=== PATIENT | male | born 2000 | race Caucasian/White ===

== ENCOUNTER → 2020-06-05 15:50 | Outpatient (CLI) | payer OTHER, SELFPAY ==
[2020-06-06 14:31] LABS: COVID19 Sendout Positive (Not Detect)
== END ==
PROVIDERS: Visit Provider Student in an Organized Health Care Education/Training Program
DX: U07.1 COVID-19 (principal)
CPT/HCPCS: 87635

== ENCOUNTER → 2020-10-13 11:51 | Outpatient (CLI) | payer OTHER, SELFPAY | PROVIDERS: Referring Provider Internal Medicine; Visit Provider Internal Medicine | DX: Z23 Encounter for immunization (principal) | CPT/HCPCS: 90471; 90686 ==

== ENCOUNTER → 2021-10-30 14:11 | Outpatient (CLI) | payer OTHER, BC, SELFPAY | PROVIDERS: PCP Family Medicine; Referring Provider Internal Medicine; Visit Provider Internal Medicine | DX: Z23 Encounter for immunization (principal) | CPT/HCPCS: 90471; 90686 ==

== ENCOUNTER → 2021-11-15 08:59 | Outpatient (CLI) | payer OTHER, BC, SELFPAY ==
[2021-11-15 09:24] LABS: COVID19 -Nasal RAPID Negative (Negative)
== END ==
PROVIDERS: PCP Family Medicine; Referring Provider Physician Assistant; Visit Provider Physician Assistant
DX: Z20.822 Contact with and (suspected) exposure to COVID-19 (principal); R05.9 Cough, unspecified
CPT/HCPCS: 87635

== ENCOUNTER → 2022-03-27 09:44 | Outpatient (CLI) | payer OTHER, BC, SELFPAY ==
[2022-03-27 11:33] LABS: Influenza A - CEPHEID Flu A NEGATIVE (NEGATIVE); Influenza B - CEPHEID Flu B NEGATIVE (NEGATIVE)
[2022-03-27 11:34] LABS: COVID-19 CEPHEID PCR (VTM/NP) Negative (Negative)
== END ==
PROVIDERS: PCP Family Medicine; Visit Provider Nurse Practitioner Family
DX: J02.9 Acute pharyngitis, unspecified (principal); R50.9 Fever, unspecified
CPT/HCPCS: 0240U; 87070; 87077; 87147

== ENCOUNTER → 2022-06-28 11:20 | Outpatient (CLI) | payer OTHER, BC, SELFPAY ==
[2022-06-28 11:53] LABS: COVID19 -Nasal RAPID Negative (Negative)
== END ==
PROVIDERS: PCP Family Medicine; Visit Provider Nurse Practitioner Family
DX: Z20.822 Contact with and (suspected) exposure to COVID-19 (principal); J31.2 Chronic pharyngitis
CPT/HCPCS: 87070; 87077; 87147; 87635

== ENCOUNTER → 2022-11-07 13:39 | Outpatient (CLI) | payer OTHER, BC, SELFPAY | PROVIDERS: PCP Family Medicine; Referring Provider Internal Medicine; Visit Provider Internal Medicine | DX: Z23 Encounter for immunization (principal) | CPT/HCPCS: 90471; 90686 ==

== ENCOUNTER → 2023-01-10 12:28 | Outpatient (CLI) | payer OTHER, BC, SELFPAY ==
--- NOTE | 2023-01-10 12:30 | DI.RAD.S_ITS ---
PROCEDURE: XR LUMBAR SPINE 2-3V INDICATIONS: Low back injury TECHNIQUE: 3 views of the lumbar spine were acquired. COMPARISON: None. FINDINGS: Bones: 5 [id number] vertebrae are present. There is normal bony alignment. No vertebral body compression fractures. No suspicious bony lesions. Soft tissues: Overlying bowel gas pattern is normal. No suspicious soft tissue calcifications. IMPRESSION: No evidence acute bony abnormality of the lumbar spine. If clinical suspicion and/or symptoms persist, lumbar spine MRI may be helpful for further assessment. Dictated by: Santos Chen M.D. on 01/10/2023 at 12:50 Approved by: Santos Chen M.D. on 01/10/2023 at 12:51
== END ==
PROVIDERS: PCP Family Medicine; Referring Provider Registered Nurse; Visit Provider Registered Nurse
DX: M54.50 Low back pain, unspecified (principal)
CPT/HCPCS: 72100

== ENCOUNTER 2023-08-11 12:58 | Emergency (ER) | payer OTHER, BC, SELFPAY ==
[2023-08-11 13:02] VITALS: BP 143/81; PULSE 55; RESP 16; TEMP 36.7; O2SAT 99; BMI 35.9
--- NOTE | 2023-08-11 13:23 | DI.RAD.S_ITS ---
PROCEDURE: XR SHOULDER LT MIN 2V INDICATIONS: Possible torn pectoralis TECHNIQUE: 3 views of the shoulder were acquired. COMPARISON: None. FINDINGS: Bones: No fractures or dislocations. No suspicious bony lesions. Visualized ribs appear intact. Soft tissues: No suspicious soft tissue calcifications. IMPRESSION: No acute osseous abnormality. Consider MRI if clinically indicated. Dictated by: Andry Mack M.D. on 08/11/2023 at 14:33 Approved by: Andry Mack M.D. on 08/11/2023 at 14:34
--- NOTE | 2023-08-11 13:23 | ED.GENADULT ---
HPI - General Adult General Chief complaint: Extremity Injury, Upper Stated complaint: poss torn pec Time Seen by Provider: 08/11/23 13:09 Source: patient Mode of arrival: Ambulatory History of Present Illness HPI narrative: 23-year-old male who is here for evaluation of what he thinks is a torn left pectoralis muscle. Patient states he was lifting weights at the time where he states that he felt like it tore and retracted inward. His had difficulty with moving his shoulder and tenderness over the area since that time. He reports no other injuries from the event. He was placed in a sling prior to arrival. He is no specific shoulder discomfort but does hurt when he moves his shoulder. No elbow or wrist discomfort. No prior injuries. Related Data Previous Rx's Medication Instructions Recorded ondansetron HCl 4 mg tablet 4 mg PO Q8H PRN as needed for 03/26/22 nausea and vomiting #20 tabs methocarbamol 500 mg tablet 500 mg PO QID PRN Back spasm #20 01/10/23 tabs oxycodone-acetaminophen 5 mg-325 1 tab PO Q4-6H PRN pain #10 tabs 01/10/23 mg tablet (Percocet) hydrocodone 5 mg-acetaminophen 325 1 tab PO Q4-6H PRN pain #14 tabs 08/11/23 mg tablet Allergies Allergy/AdvReac Type Severity Reaction Status Date / Time Sulfa (Sulfonamide Allergy Mild hives Verified 08/11/23 13:08 Antibiotics) Review of Systems Constitutional Constitutional: Reports system reviewed and no additional complaints, except as documented Musculoskeletal Musculoskeletal: Reports system reviewed and no additional complaints, except as documented Integumentary/Breasts Skin/Breast: Reports system reviewed and no additional complaints, except as documented Neurologic Neurologic: Reports system reviewed and no additional complaints, except as documented Hematologic/Lymphatic On Anticoagulants: No Patient History Social History Smoking Status: Never smoker Smoking Status: Never smoker Substance Use Type: does not use Exam Initial Vital Signs Initial Vital Signs: Vital Signs Temperature 98.1 F 08/11/23 13:02 Pulse Rate 55 L 08/11/23 13:02 Respiratory Rate 16 08/11/23 13:02 Blood Pressure 143/81 H 08/11/23 13:02 Pulse Oximetry 99 08/11/23 13:02 Oxygen Delivery Method Room Air 08/11/23 13:02 [facility] Head: normal to inspection Cardio Pulses: radial pulses present on the left Skin General: no rashes or lesions noted Extrem Other: Patient does have what appears to be a deficit at the insertion site of the left pectoralis muscle. His left elbow left wrist unremarkable. He is no tenderness to palpation left shoulder but has discomfort with movement of the left shoulder. Course Orders Ordered: ED Orders 08/11/23 13:23 XR shoulder LT min 2V Stat Vital Signs Vital signs: Vital Signs - 8 hr 08/11/23 13:02 Temperature 98.1 F Pulse Rate 55 L Respiratory Rate 16 Blood Pressure 143/81 H Pulse Oximetry 99 Oxygen Delivery Method Room Air Medical Decision Making Imaging Data Extremity x-ray #1: Radiologist's Impression: PROCEDURE:? XR SHOULDER LT MIN 2V ? INDICATIONS:? Possible torn pectoralis ? TECHNIQUE:? 3 views of the shoulder were acquired.? ? COMPARISON:? None. ? FINDINGS:? ? Bones:? No fractures or dislocations.? No suspicious bony lesions.? Visualized ribs appear intact.? ? Soft tissues:? No suspicious soft tissue calcifications.? ? IMPRESSION:? No acute osseous abnormality.? Consider MRI if clinically indicated. [facility] Narrative Medical decision making narrative: X-ray shows no acute pathology. Physical exam is consistent with the pectoralis tear. He was placed in a splint for his comfort. Will have him follow-up with Orthopedic surgery. He was given care instructions and return precautions. He expressed understanding and agreement. Discharge Plan Departure Patient Disposition: Home Clinical Impression: Pectoralis muscle rupture Instructions: How to Use a Sling, DI for Pectoralis Major Repair Activity Restrictions/Additional Instructions: The sling is for your comfort. You can take it off to shower and to get dressed. I do recommend that you follow-up with orthopedic surgery. Contact them with the number provided below. Return to the emergency department for new or worsening symptoms. Prescriptions: New hydrocodone-acetaminophen 5-325 mg tablet 1 tab PO Q4-6H PRN (Reason: pain) Qty: 14 0RF No Action methocarbamol 500 mg tablet 500 mg PO QID PRN (Reason: Back spasm) Qty: 20 0RF oxycodone-acetaminophen [Percocet] 5-325 mg tablet 1 tab PO Q4-6H PRN (Reason: pain) Qty: 10 0RF ondansetron HCl 4 mg tablet 4 mg PO Q8H PRN (Reason: as needed for nausea and vomiting) Qty: 20 0RF Referrals: Nohemy Helm MD [Primary Care Provider] - Joyce Guevara MD [Physician] - Stand Alone Forms: Patient Portal/API
[2023-08-11] MEDS: HYDROCODONE/ACET 5/325 TABLET 1 TAB PO (15:00)
[2023-08-11 15:09] VITALS: BP 140/80; PULSE 56; RESP 16; O2SAT 99
== END 2023-08-11 15:15 | disposition home or self-care (01) ==
PROVIDERS: Emergency Provider Emergency Medicine; PCP Family Medicine
DX: S29.011A Strain of muscle and tendon of front wall of thorax, initial encounter (principal); X50.0XXA Overexertion from strenuous movement or load, initial encounter
CPT/HCPCS: 73030; 99283; 99284

== ENCOUNTER → 2023-08-13 16:11 | Outpatient (CLI) | payer OTHER, BC, SELFPAY ==
--- NOTE | 2023-08-13 | DI.MRI.S_ITS ---
PROCEDURE: MR CHEST WO CON INDICATIONS: TRAUMATIC RUPTURE OF LEFT PECTORALIS TENDON TECHNIQUE: Axial and oblique coronal T1 spin echo and T2 spin echo with fat saturation, sagittal T1 spin echo and STIR acquired through the affected chest wall. COMPARISON: [facility], CR, XR SHOULDER LT MIN 2V, 08/11/2023, 13:34. FINDINGS: Image quality: Good Bones: No suspicious fracture. Suspected insertional ganglion in the lateral humeral head. The acromioclavicular and acromioclavicular intervals appear intact. No significant malalignment of the sternoclavicular joints. Soft tissues: Positive for pectoralis major tear, with high-grade edema involving the humeral origin, with edema extending to the posterior superior portion of the muscle fibers, and minimal edema at the sternal and clavicular attachment. Slight asymmetry of the pectoralis muscle, probably a small intramuscular hematoma. No drainable fluid collection. No suspicious signal in the partially visualized mediastinum and upper abdomen. IMPRESSION: Positive study for left pectoralis major tear, with edema most confluent at the humeral origin, and mild edema at the clavicular and sternal insertions. Dictated by: Conrado Hdez M.D. on 08/14/2023 at 9:37 Approved by: Conrado Hdez M.D. on 08/14/2023 at 9:41
== END ==
PROVIDERS: PCP Family Medicine; Referring Provider Physician Assistant; Visit Provider Physician Assistant
DX: S29.011A Strain of muscle and tendon of front wall of thorax, initial encounter (principal); X58.XXXA Exposure to other specified factors, initial encounter
CPT/HCPCS: 71550

== ENCOUNTER → 2023-10-27 10:35 | Outpatient (CLI) | payer OTHER, BC, SELFPAY | PROVIDERS: PCP Family Medicine; Referring Provider Family Medicine; Visit Provider Family Medicine | DX: Z23 Encounter for immunization (principal) | CPT/HCPCS: 90471; 90686 ==

== ENCOUNTER → 2024-02-18 10:27 | Outpatient (CLI) | payer OTHER, BC, SELFPAY ==
[2024-02-18 11:14] LABS: Influenza A - CEPHEID Flu A NEGATIVE (NEGATIVE); Influenza B - CEPHEID Flu B NEGATIVE (NEGATIVE); Respiratory Syncytial Virus Negative (Negative)
[2024-02-18 11:15] LABS: COVID-19 CEPHEID 4-PLEX PCR Negative (Negative)
== END ==
PROVIDERS: PCP Family Medicine; Visit Provider Nurse Practitioner Family
DX: J02.8 Acute pharyngitis due to other specified organisms (principal); B97.89 Other viral agents as the cause of diseases classified elsewhere; J31.2 Chronic pharyngitis
CPT/HCPCS: 0241U; 87070